=== PATIENT | male | born 1965 | race Caucasian/White ===

== ENCOUNTER 2020-11-08 15:31 | Inpatient (IN) | payer BC, SELFPAY ==
[~2020-11-08] VITALS: Ht 175.3 cm; Wt 78.0 kg
[2020-11-08 16:39] VITALS: Ht 175.3 cm; Wt 78.0 kg
[2020-11-08 19:28] LABS: BASOPHIL % 0.4 % (0.2-1.5); PLATELET COUNT 188 x10^3mcL (152-348)
[2020-11-08 20:19] LABS: CALCIUM 8.2 mg/dL (8.5-10.1); CARBON DIOXIDE 27.6 mmol/L (21-32); CHLORIDE SERUM 97 mmol/L (98-107); GFR1 > 60 mL/min; GLUCOSE SERUM 129 mg/dL (74-106); POTASSIUM SERUM 4.3 mmol/L (3.5-5.1); SODIUM SERUM 136 mmol/L (136-145)
[2020-11-08 20:23] LABS: ALBUMIN 3.7 g/dL (3.4-5.0); ALKALINE PHOSPHATASE 85 U/L (46-116); ALT/SGPT 167 U/L (16-63); AST/SGOT 236 U/L (15-37); BILIRUBIN TOTAL 0.6 mg/dL (0.20-1.00); TOTAL PROTEIN, SERUM 7.8 g/dL (6.4-8.2)
[2020-11-08 20:25] LABS: C REACTIVE PROTEIN 14.4 mg/dL (<=0.9); LACTIC DEHYDROGENASE (LDH) 673 U/L (100-190)
[2020-11-09] VITALS (7 sets, daily range): BP systolic 109–130; BP diastolic 74–89
[2020-11-09 08:47] LABS: CARBON DIOXIDE 27.2 mmol/L (21-32); CHLORIDE SERUM 100 mmol/L (98-107); CREATININE SERUM 0.8 mg/dL (0.7-1.3); GFR1 > 60 mL/min; GLUCOSE SERUM 168 mg/dL (74-106); POTASSIUM SERUM 4.2 mmol/L (3.5-5.1); SODIUM SERUM 137 mmol/L (136-145)
[2020-11-09 08:52] LABS: BASOPHIL % 0.2 % (0.2-1.5); PLATELET COUNT 191 x10^3mcL (152-348); RED CELL DISTRIBUTION WIDTH 13.9 % (12.1-16.2)
[2020-11-09 09:01] LABS: FREE T4 1.15 ng/dL (0.76-1.46); FREE THYROXINE INDEX 2.5 ug/dL (1.4-4.5); T4(THYROXINE) 8.7 ug/dL (4.7-13.3)
[2020-11-09 09:10] LABS: CHOLESTEROL/HDL RATIO 1.9
[2020-11-09 10:15] LABS: T3 TOTAL 0.92 ng/mL
[2020-11-09 21:18] LABS: microscopic required? NO
[2020-11-09 21:29] LABS: urine erythrocyte NEGATIVE (NEGATIVE)
[2020-11-10 05:22] VITALS: BP 115/78
[2020-11-10 08:14] VITALS: BP 111/78
[2020-11-10 09:00] LABS: BASOPHIL % 0.2 % (0.2-1.5); PLATELET COUNT 254 x10^3mcL (152-348); RED CELL DISTRIBUTION WIDTH 13.9 % (12.1-16.2)
[2020-11-10 09:58] LABS: ALKALINE PHOSPHATASE 73 U/L (46-116); ALT/SGPT 177 U/L (16-63); AST/SGOT 190 U/L (15-37); BILIRUBIN TOTAL 0.55 mg/dL (0.20-1.00); C REACTIVE PROTEIN 6.6 mg/dL (<=0.9); CALCIUM 8.3 mg/dL (8.5-10.1); CARBON DIOXIDE 24.6 mmol/L (21-32); CHLORIDE SERUM 98 mmol/L (98-107); CREATININE SERUM 0.9 mg/dL (0.7-1.3); GFR1 > 60 mL/min; GLUCOSE SERUM 149 mg/dL (74-106); MAGNESIUM 2.2 mg/dL (1.8-2.4); PHOSPHOROUS 3.1 mg/dL (2.5-4.9); POTASSIUM SERUM 4.2 mmol/L (3.5-5.1); SODIUM SERUM 136 mmol/L (136-145); TOTAL PROTEIN, SERUM 6.6 g/dL (6.4-8.2)
[2020-11-10 10:00] LABS: ALBUMIN 2.8 g/dL (3.4-5.0)
[2020-11-10 11:53] VITALS: BP 119/83
[2020-11-10 15:40] VITALS: BP 125/82
[2020-11-10 20:27] VITALS: BP 130/84
[2020-11-11 05:27] VITALS: BP 136/92
[2020-11-11 08:52] LABS: ALBUMIN 2.7 g/dL (3.4-5.0); BILIRUBIN DIRECT 0.24 mg/dL (0.0-0.2); BILIRUBIN TOTAL 0.61 mg/dL (0.20-1.00); TOTAL PROTEIN, SERUM 6.8 g/dL (6.4-8.2)
[2020-11-11 09:07] VITALS: BP 122/84
[2020-11-11 12:25] VITALS: BP 129/91
[2020-11-11 17:37] VITALS: BP 134/86
[2020-11-11 21:35] VITALS: BP 128/92
[2020-11-12 05:55] VITALS: BP 137/90
[2020-11-12 08:50] VITALS: BP 128/87
[2020-11-12 09:31] LABS: BASOPHIL % 0.4 % (0.2-1.5); PLATELET COUNT 361 x10^3mcL (152-348); RED CELL DISTRIBUTION WIDTH 13.9 % (12.1-16.2)
[2020-11-12 12:06] VITALS: BP 128/89
[2020-11-12 14:02] LABS: CALCIUM 8.9 mg/dL (8.5-10.1); CHLORIDE SERUM 102 mmol/L (98-107); CREATININE SERUM 0.9 mg/dL (0.7-1.3); GFR1 > 60 mL/min; GLUCOSE SERUM 135 mg/dL (74-106); POTASSIUM SERUM 4.5 mmol/L (3.5-5.1); SODIUM SERUM 138 mmol/L (136-145)
[2020-11-12 16:46] VITALS: BP 131/84
[2020-11-12 20:09] VITALS: BP 129/84
[2020-11-13 04:35] VITALS: BP 126/94
[2020-11-13 07:27] LABS: BASOPHIL % 0.2 % (0.2-1.5); RED CELL DISTRIBUTION WIDTH 13.8 % (12.1-16.2)
[2020-11-13 07:31] LABS: CALCIUM 8.6 mg/dL (8.5-10.1); CARBON DIOXIDE 25.8 mmol/L (21-32); CHLORIDE SERUM 100 mmol/L (98-107); CREATININE SERUM 0.9 mg/dL (0.7-1.3); GFR1 > 60 mL/min; GLUCOSE SERUM 113 mg/dL (74-106); POTASSIUM SERUM 4.3 mmol/L (3.5-5.1); SODIUM SERUM 135 mmol/L (136-145)
[2020-11-13 08:54] LABS: PLATELET COUNT 500 x10^3mcL (152-348)
[2020-11-13 10:10] VITALS: BP 109/88
[2020-11-13 16:50] VITALS: BP 122/82
[2020-11-13 20:44] VITALS: BP 133/84
[2020-11-14 05:22] VITALS: BP 133/91
[2020-11-14 07:57] LABS: BASOPHIL % 0.1 % (0.2-1.5); RED CELL DISTRIBUTION WIDTH 13.9 % (12.1-16.2)
[2020-11-14 08:20] LABS: CALCIUM 8.2 mg/dL (8.5-10.1); CARBON DIOXIDE 26.9 mmol/L (21-32); CHLORIDE SERUM 99 mmol/L (98-107); CREATININE SERUM 0.9 mg/dL (0.7-1.3); GFR1 > 60 mL/min; GLUCOSE SERUM 100 mg/dL (74-106); MAGNESIUM 2.2 mg/dL (1.8-2.4); POTASSIUM SERUM 4.2 mmol/L (3.5-5.1); SODIUM SERUM 135 mmol/L (136-145)
[2020-11-14 08:51] VITALS: BP 113/86
[2020-11-14 11:10] LABS: PLATELET COUNT 510 x10^3mcL (152-348)
[2020-11-14 12:14] VITALS: BP 113/86
[2020-11-14 16:48] VITALS: BP 121/87; BP 147/102
[2020-11-14 21:50] VITALS: BP 122/83
[2020-11-14 21:54] VITALS: BP 122/83
[2020-11-15 06:06] VITALS: BP 137/88
[2020-11-15 09:38] VITALS: BP 118/82
[2020-11-15 12:06] VITALS: BP 127/82
== END 2020-11-15 13:12 | disposition left against medical advice (07) | DRG 871 ==
LOC: ED 15:31 → DU 21:53 → EDBEDREQ 21:54 → DU 11-09 02:49
PROVIDERS: Internal Medicine; Student in an Organized Health Care Education/Training Program; ADMIT Family Medicine; ATTEND Family Medicine
DX: A41.89 Other specified sepsis (principal); U07.1 COVID-19; J96.01 Acute respiratory failure with hypoxia; J12.89 Other viral pneumonia; E87.8 Other disorders of electrolyte and fluid balance, not elsewhere classified; Z53.29 Procedure and treatment not carried out because of patient's decision for other reasons; Z79.899 Other long term (current) drug therapy
CPT/HCPCS: 36600; 83880; 84439; 85378; G0378; J0456; J0696; J1100; J1644; J3535; U0003